=== PATIENT | male | born 1960 | race Caucasian/White ===

== ENCOUNTER 2024-05-24 14:46 | Emergency (ER) | payer SELFPAY ==
[2024-05-24] MEDS ORDERED: Sodium Chloride 0.9% 10 ML Syringe FLUSH PRN (15:00)
[2024-05-24 15:07] LABS: BASOPHILS PERCENT AUTO 0.4 % (0.0-1.0); EOSINOPHILS PERCENT AUTO 0.9 % (1.0-3.0); HEMATOCRIT 46.6 % (40.0-54.0); HEMOGLOBIN 15.4 g/dL (14.0-18.0); LYMPHOCYTES PERCENT AUTO 20.2 % (20.5-50.1); MEAN CORPUSCULAR HEMOGLOBIN 30.5 pg (27.0-34.0); MEAN CORPUSCULAR VOLUME 92.3 fL (80-100); MONOCYTES PERCENT AUTO 11.3 % (2-8); NEUTROPHILS PERCENT AUTO 67.2 % (42.2-75.2); PLATELET COUNT,PLT 320 10^3/uL (150-450); RED BLOOD CELL COUNT 5.05 10^6/uL (4.6-6.2); WHITE BLOOD CELL COUNT,WBC 10.1 10^3/uL (5.0-10.0)
[2024-05-24 15:28] LABS: INR 1.1 (0.9-1.2); PROTHROMBIN TIME 11.2 SEC (9.0-12.0)
[2024-05-24 15:50] LABS: A/G RATIO 0.9; ALBUMIN 3.4 g/dL (3.4-5.0); ANION GAP 13.9 mEq/L (7-13); BILIRUBIN TOTAL 2.5 mg/dL (0.2-1.0); BUN/CREATININE RATIO 17.4 (No establ ref range); C-REACTIVE PROTEIN 1.65 ng/dL (<=0.50); CALCIUM 9.6 mg/dL (8.5-10.1); CREATININE 1.09 mg/dL (0.70-1.30); EST CRCL DRUG DOSING (CG) 64.85 mL/min; MAGNESIUM 2.1 mg/dL (1.8-2.4); POTASSIUM,K 3.9 mmol/L (3.5-5.1); PROTEIN TOTAL,TP 7.1 g/dL (6.4-8.2); TSH ULTRASENSITIVE 3.59 uIU/mL (0.36-3.74)
[2024-05-24] MEDS: Iopamidol 755 Mg/ML 100 ML Bottle IVPUSH ONE (16:11)
[2024-05-24] MEDS ORDERED: fentaNYL 100 MCG/2 ML SDV IVPUSH ONE (17:58)
[2024-05-24] MEDS: Ondansetron 4 MG/2 ML SDV IVPUSH ONE (18:08)
[2024-05-24] MEDS: HYDROmorphone 1 MG/ML Syringe IVPUSH ONE (18:11)
[2024-05-24] MEDS: HYDROmorphone 1 MG/ML Syringe ONE (18:11)
[2024-05-24 23:32] LABS: BODY FLUID TYPE PLEURAL FLUID
[2024-05-24 23:34] LABS: GLUCOSE,BODY FLUID 132; PROTEIN,BODY FLUID 1.3 mg/dL
[2024-05-26 13:47] LABS: BASO'S 0 /cu mm; EO'S 54 /cu mm; LYMPH'S 956 /cu mm; MONO'S 0 /cu mm; OTHER 775 /cu mm; PMN'S 18 /cu mm
== END 2024-05-24 21:32 | disposition home or self-care (01) ==
LOC: DL.ED 14:46
DX: J90 Pleural effusion, not elsewhere classified (principal); I10 Essential (primary) hypertension; E78.00 Pure hypercholesterolemia, unspecified; E11.9 Type 2 diabetes mellitus without complications
CPT/HCPCS: 36415; 71045; 71275; 80053; 82042; 82945; 83615; 83735; 83880; 83986; 84157; 84443; 84484; 85025; 85610; 86140; 87015; 87070; 87116; 87206; 89051; 93005; 93010; 96374; 96375; 99284; 99285-25; J1170; J2405; Q9967; U0002

== ENCOUNTER 2024-05-27 19:59 | Emergency (ER) | payer SELFPAY ==
[2024-05-27 20:26] LABS: BASOPHILS PERCENT AUTO 0.4 % (0.0-1.0); EOSINOPHILS PERCENT AUTO 2.1 % (1.0-3.0); HEMATOCRIT 46.8 % (40.0-54.0); HEMOGLOBIN 15.4 g/dL (14.0-18.0); MEAN CORPUSCULAR HEMOGLOBIN 30.4 pg (27.0-34.0); MEAN CORPUSCULAR HGB CONC 32.9 g/dL (33.0-35.0); MEAN CORPUSCULAR VOLUME 92.5 fL (80-100); MONOCYTES PERCENT AUTO 11.8 % (2-8); NEUTROPHILS PERCENT AUTO 62.7 % (42.2-75.2); PLATELET COUNT,PLT 332 10^3/uL (150-450); RED BLOOD CELL COUNT 5.06 10^6/uL (4.6-6.2); WHITE BLOOD CELL COUNT,WBC 8.9 10^3/uL (5.0-10.0)
[2024-05-27] MEDS: Sodium Chloride 0.9% 10 ML Syringe FLUSH PRN (20:36)
[2024-05-27 20:43] LABS: B-TYPE NATRIURETIC PEPTIDE,BNP 1010 pg/ml (0-100)
[2024-05-27 20:45] LABS: INR 1.1 (0.9-1.2); PROTHROMBIN TIME 11.4 SEC (9.0-12.0)
[2024-05-27 20:49] LABS: ALANINE AMINOTRANSFERASE,ALT 40 U/L (16-63); ALBUMIN 3.3 g/dL (3.4-5.0); ALKALINE PHOSPHATASE 100 U/L (46-116); ANION GAP 12.6 mEq/L (7-13); ASPARTATE AMNIOTRANSFERASE,AST 23 U/L (15-37); BILIRUBIN TOTAL 1.2 mg/dL (0.2-1.0); BLOOD UREA NITROGEN,BUN 24 mg/dL (7-18); BUN/CREATININE RATIO 23.8 (No establ ref range); C-REACTIVE PROTEIN 0.88 ng/dL (<=0.50); CALCIUM 9.4 mg/dL (8.5-10.1); CARBON DIOXIDE,CO2 25 mmol/L (21-32); CHLORIDE,CL 107 mmol/L (98-107); CREATININE 1.01 mg/dL (0.70-1.30); EST CRCL DRUG DOSING (CG) 74.86 mL/min; GLUCOSE RANDOM 105 mg/dL (70-99); POTASSIUM,K 3.6 mmol/L (3.5-5.1); PROTEIN TOTAL,TP 6.9 g/dL (6.4-8.2); SODIUM,NA 141 mmol/L (136-145)
[2024-05-27 20:51] LABS: A/G RATIO 0.92; ESTIMATED GFR 84 mL/min (>=60)
[2024-05-27] MEDS: Furosemide 40 MG/4 ML VIAL IV ONE (22:32)
== END 2024-05-27 22:39 ==
LOC: DL.ED 19:59
DX: J90 Pleural effusion, not elsewhere classified (principal); R79.89 Other specified abnormal findings of blood chemistry; I10 Essential (primary) hypertension; E11.9 Type 2 diabetes mellitus without complications
CPT/HCPCS: 36415; 71046; 80053; 83605; 83735; 83880; 84145; 84484; 85025; 85610; 85730; 86140; 93005; 93010; 96374; 99285; 99285-25; J1940; J3490